=== PATIENT | male | born 1975 | race Caucasian/White ===

== ENCOUNTER 2019-02-19 19:36 | Emergency (ER) | payer MEDICAID ==
[2019-02-19] MEDS ORDERED: ONDANSETRON 4 MG TAB.RAPDIS PO ONE (20:12)
[2019-02-19] MEDS ORDERED: OXYCODONE-ACETAMINOPHEN 5-325 MG TABLET PO ONE (20:12)
--- NOTE | 2019-02-19 20:17 | ER Document Report ---
ED Medical Screen (RME) - General Chief Complaint: Leg Pain Stated Complaint: RIGHT LEG PAIN Time Seen by Provider: 02/19/19 20:08 Notes: Patient is a 43-year-old male with a history of hypertension presents to the emergency department with a chief complaint of right lower lateral leg pain that started prior to arrival. Patient states he did have a tibia-fibula fracture with surgery on October 31 and was cleared to bear weight on the foot. Patient states he does wear a hard walking boot at all times and uses crutches. Patient states he was sitting down to eat dinner when he went to get up and bear weight without his boot. Patient states he went to reach for his crutches when he heard a pop to the right lateral lower leg. Patient states since then he has had excruciating pain. Patient denies numbness or tingling to his foot. Vishal jones reports he has multiple rods in the lower leg and he is concerned that something was altered with this. TRAVEL OUTSIDE OF THE [place] IN LAST 30 DAYS: No - Related Data Allergies/Adverse Reactions: No Known Allergies Allergy (Unverified 02/19/19 19:40) Physical Exam - Vital signs Vitals: Temp Pulse Resp BP Pulse Ox 98.9 F 80 18 136/87 H 93 02/19/19 19:46 02/19/19 19:46 02/19/19 19:46 02/19/19 19:46 02/19/19 19:46 Interpretation: Normal - Extremities Notes: Patient does have edema to the right lower extremity. This is nonpitting. Patient has a good strong palpable dorsalis pedis pulse. Course - Re-evaluation Re-evalutation: 02/19/19 20:13 I have greeted and performed a rapid initial assessment of this patient. A comprehensive ED assessment and evaluation of the patient, analysis of test results and completion of the medical decision making process will be conducted by additional ED providers. - Vital Signs Vital signs: Temp Pulse Resp BP Pulse Ox 98.9 F 80 18 136/87 H 93 02/19/19 19:46 02/19/19 19:46 02/19/19 19:46 02/19/19 19:46 02/19/19 19:46
--- NOTE | 2019-02-19 20:59 | ER Document Report ---
ED General - General Chief Complaint: Leg Pain Stated Complaint: RIGHT LEG PAIN Time Seen by Provider: 02/19/19 20:08 Primary Care Provider: CONNIE MAYA MD [ACTIVE STAFF] - Follow up as needed (local orthopedics) Notes: Patient is a 43-year-old male with history of right ankle fracture and repair that presents to the emergency department for chief complaint of right ankle pain. Patient states that he is been healing from an injury that occurred back in October, he had surgery in October, and had multiple plates and screws in his right ankle, he was cleared in December, to start weightbearing any physical therapy, he does wear a rigid boot most the time, and uses crutches to keep weight off of it, he went to stand up after eating dinner and felt a pop and significant pain in his right ankle, that he had not felt before, so he decided come to the emergency department. He had his original surgery in [facility], is planning to go back there tomorrow, to follow-up with the surgeon, and make a phone call to see them sooner than later. He denies any numbness, tingling or weakness in his foot. He currently rates his pain as a 6 out of 10, but is improved now, after receiving 2 Percocet in triage. He describes the pain as a constant aching sensation worse with even trying to put any weight on it. Past Medical History: Hypertension Past Surgical History: ORIF of the right ankle Social History: Former smoker, denies regular alcohol use, denies illicit drug use. Family History: Reviewed and noncontributory for presenting illness Allergies: Reviewed, see documented allergy list. REVIEW OF SYSTEMS: Other than noted above, the 12 point review of systems was reviewed with the patient and were negative, all pertinent findings are included in the HPI. PHYSICAL EXAMINATION: Vital signs reviewed, nursing noted reviewed. GENERAL: Well-appearing, well-nourished and in no acute distress. HEAD: Atraumatic, normocephalic. EYES: Eyes appear normal, extraocular movements intact, sclera anicteric, con junctiva are normal. ENT: nares patent, oropharynx clear without exudates. Moist mucous membranes. NECK: Normal range of motion, supple without lymphadenopathy LUNGS: Breath sounds clear to auscultation bilaterally and equal. No wheezes rales or rhonchi. HEART: Regular rate and rhythm without murmurs ABDOMEN: Soft, nontender, normoactive bowel sounds. No rebound, guarding, or rigidity. No masses appreciated. EXTREMITIES: Right ankle, has surgical incisional scars, there is noted to be swelling on the lateral aspect, there is tenderness palpation to this area, there is no open skin, there is deformity to the ankle, there is no tenderness to palpation of the Achilles tendon, or the medial aspect of the ankle. He is neurovascular intact distally, good cap refill, less than 3 seconds in all digits, sensation and motor intact distally to the ankle as well. The rest of his extremity exam is grossly unremarkable. NEUROLOGICAL: No focal neurological deficits. Moves all extremities spontaneously Motor and sensory grossly intact on exam. PSYCH: Normal mood, normal affect. SKIN: Warm, Dry, normal turgor, no rashes or lesions noted on exposed skin TRAVEL OUTSIDE OF THE [place] IN LAST 30 DAYS: No - Related Data Allergies/Adverse Reactions: No Known Allergies Allergy (Unverified 02/19/19 19:40) Past Medical History - Social History Smoking Status: Former Smoker Frequency of alcohol use: None Drug Abuse: None Family History: Reviewed & Not Pertinent Patient has suicidal ideation: No Patient has homicidal ideation: No - Past Medical History Cardiac Medical History: Reports: Hx Hypertension Renal/ Medical History: Denies: Hx Peritoneal Dialysis Past Surgical History: Reports: Hx Orthopedic Surgery - right leg Physical Exam - Vital signs Vitals: Temp Pulse Resp BP Pulse Ox 98.9 F 80 18 136/87 H 93 02/19/19 19:46 02/19/19 19:46 02/19/19 19:46 02/19/19 19:46 02/19/19 19:46 Course - Re-evaluation Re-evalutation: Patient seen and examined vital signs reviewed. Patient was evaluated and treated as appropriate for the patient's presenting symptoms and complaint, with consideration of any critical or life threatening conditions that may be associated with their obtained history and exam as noted above. Patient was treated with oxycodone for his pain The patient was re-evaluated and was stable, pain was controlled, x-rays were reviewed of the patient's right tibia and fibula, it did appear that he had fractured hardware, and possibly new fracture of the distal tibia, I offered to splint the patient in a Ortho-Glass splint, but he does have a rigid boot, that he is been wearing, and I think this would suffice for splinting this patient, would overall be more comfortable, he is provided with new crutches, he does have hardware within his ankle, is also providing support, do not think he needs a new splint. Patient was agreement with this. My assumption is that his one plate that appear to be fractured, was bending, and eventually broke today, patient's pain was controlled, he is going back to [place] tomorrow, and will follow up with his orthopedic surgeon, to have reassessment, he is given a copy of his images, and was in agreement with follow-up, given prescription for Percocet to take only if needed for pain. Evaluation was most consistent with right tibia fracture. *Note is created using voice recognition software and may contain spelling, syntax or grammatical errors. Tibia/Fibula X-Ray 02/19/19 20:12 IMPRESSION: 1. Acute fractures of the distal tibia, with multiple screw and fixation plate fractures as described. 2. Medial angulation of the distal fibula. The fibular fixation plate remains intact, but there is likely fractures of the fibular shaft along the plate. - Vital Signs Vital signs: Temp Pulse Resp BP Pulse Ox 98.6 F 73 18 142/86 H 95 02/19/19 22:15 02/19/19 22:15 02/19/19 22:15 02/19/19 22:15 02/19/19 22:15 Discharge - Discharge Clinical Impression: Closed fracture of distal tibia Qualifiers: Encounter type: initial encounter Fracture morphology: unspecified fracture morphology Laterality: right Qualified Code(s): S82.301A - Unspecified fracture of lower end of right tibia, initial encounter for closed fracture Condition: Stable Disposition: HOME, SELF-CARE Instructions: Fractured Ankle (Bimalleolar) (FORM[facility]LY [facility], 1928–1983) Additional Instructions: Please follow-up with your orthopedic surgeon, call for an appointment tomorrow, to schedule one as soon as possible, as you may need revision surgery, or hardware removal. Please keep all weight off of your right ankle. Wear the rigid boot, 24 hours a day to avoid any further injury. Take the pain medication only as needed. Prescriptions: Oxycodone HCl/Acetaminophen [Percocet 5-325 mg Tablet] 1 tab PO Q6H PRN #20 tab PRN Reason: ankle pain Referrals: CONNIE MAYA MD [ACTIVE STAFF] - Follow up as needed (local orthopedics)
--- NOTE | 2019-02-19 21:03 | RADIOLOGY REPORT (SQ) ---
EXAM DESCRIPTION: Right tibia/fibula RadLex: XR TIBIA FIBULA 2 VIEWS Views: 2 CLINICAL HISTORY: 43 years Male, right lower leg pain, hx. tib/fib fx in october COMPARISON: None. FINDINGS: There has been previous internal fixation of the distal tibia and fibula. The posterior tibial fixation plate has become from the posterior margin of the tibia, with several fractured screws. In addition, the anterior tibial fixation plate is fractured. There is approximately 20 degree medial angulation of the distal tibia. Several acute fractures are seen along the distal shaft in the area of previous fixation. The distal fibula is also angled medially. There is a fixation plate along the distal fibular shaft, which remains intact. Tibiotalar joint alignment remains grossly anatomic. IMPRESSION: 1. Acute fractures of the distal tibia, with multiple screw and fixation plate fractures as described. 2. Medial angulation of the distal fibula. The fibular fixation plate remains intact, but there is likely fractures of the fibular shaft along the plate.
[2019-02-19 22:22] VITALS: BP 142/86
== END 2019-02-19 22:15 | disposition home or self-care (01) ==
LOC: ER 19:36
DX: S82.301A Unspecified fracture of lower end of right tibia, initial encounter for closed fracture (principal); M25.571 Pain in right ankle and joints of right foot; M79.604 Pain in right leg; X50.1XXA Overexertion from prolonged static or awkward postures, initial encounter; Z87.891 Personal history of nicotine dependence; Z87.81 Personal history of (healed) traumatic fracture; Z98.890 Other specified postprocedural states; I10 Essential (primary) hypertension
CPT/HCPCS: 99283